=== PATIENT | female | born 1965 | race Caucasian/White ===

== ENCOUNTER 2025-09-21 15:24 | Emergency (ER) | payer BC, SELFPAY ==
[2025-09-21 15:26] VITALS: BP 126/72
[2025-09-21 15:46] LABS: Hematocrit 39.5 % (37.0-47.0); Hemoglobin 13.4 g/dL (12.0-16.0); Mean Corp Hgb Conc. 33.9 g/dL (33.0-37.0); Mean Corpuscular Volume 88.2 fL (81.0-99.0); Nucleated Red Blood Cells % 0 %; Platelet Count 273 10^3/uL (130-400); Red Cell Dist. Width 13.4 % (11.5-14.5)
[2025-09-21 15:56] LABS: ALT (SGPT) 33 U/L (0-35); AST (SGOT) 29 U/L (14-36); Albumin 4.1 g/dl (3.5-5.0); Alkaline Phosphatase 107 U/L (38-126); Blood Urea Nitrogen 23 mg/dl (7-17); Calcium 9.0 mg/dl (8.4-10.2); Carbon Dioxide 27 mmol/L (22-30); Chloride 104 mmol/L (98-107); Glucose 132 mg/dl (70-99); Potassium 3.9 mmol/L (3.5-5.1); Sodium 134 mmol/L (135-145); Total Protein 6.6 g/dl (6.3-8.2); eGFR > 60.00
[2025-09-21 17:27] VITALS: BP 115/69
[2025-09-21 17:29] VITALS: BMI 29.6
[2025-09-21 18:00] VITALS: BP 104/72
--- NOTE | 2025-09-21 18:53 | ED.CVA ---
History of Present Illness
General
Chief Complaint: CVA/TIA Symptoms
Time Seen by Provider: 09/21/25 17:18
Onset of Stroke Symptoms
Onset of symptoms known: Yes
Date of onset of symptoms: 09/21/25
Time of onset of symptoms: 09:00
History of Present Illness
History of Present Illness:
60-year-old female presenting to the emergency department for concern of strokelike symptoms. Patient reports at 9 AM she had an episode of dizziness and blurred vision. Reports recent complex history of possible TIA. Patient had been in [place]
visiting family when she had multiple episodes of right sided weakness. She notes extensive workup including CT and MRI which were all reportedly normal. She has since followed up with neurology at [facility], is scheduled for MRI and EEG in the
coming weeks. She had been on Plavix for about 3 weeks, since taken off. She is still taking aspirin. She notes that her symptoms today lasted about a minute. In discussion with neurology, she notes that migraines have been a discussion as
etiology of symptoms. Does report that she was having a headache after her symptoms today. Denies any present acute medical complaint such as weakness, numbness, chest pain, difficulty breathing.
Phy Exam
Physical Exam
Physical Exam:
General: Well-appearing, no clinical signs of dehydration, nontoxic and in no acute distress
HEENT: protecting airway, pupils equal and reactive
Neck: appears supple
CV: Normal heart rate, regular rhythm
Resp: No accessory muscle use, no increased work of breathing, lungs clear to auscultation bilaterally
Abd: No distention
Extremities: No deformities, no swelling
Neuro: alert, no focal neurologic deficit
: deferred
Rectal: deferred
Psych: Normal affect
Skin: Intact
Scores
NIH Stroke Score
Level of Consciousness: 0 - Alert
LOC Questions: 0-Answers both correctly
LOC Commands: 0-Performs both correctly
Best Horizontal Gaze: 0-Normal
Visual Puckett: 0=Normal, no visual loss
Facial Palsy: 0=Normal, symmetrical
Motor - Right Arm: 0=No drift 10 seconds
Motor - Left Arm: 0=No drift 10 seconds
Motor - Right Le-No drift 5 seconds
Motor - Left Le-No drift 5 seconds
Limb Ataxia: 0-Absent
Sensation: 0-Normal
Best Language: 0-No aphasia
Dysarthria: 0-Normal
Extinction and Inattention: 0-No abnormality
NIH Total Score:: 0
Course
Orders/Labs/Results
Orders:
Orders
09/21/25 15:33
Electrocardiogram (*1) Urgent
Reason for Study: Abdominal Pain
EKG- Treatment ONCE
09/21/25 15:36
Complete Blood Count/With Diff Urgent
Comprehensive Metabolic Panel Urgent
09/21/25 18:04
CT Head & Neck Angio W/wo IV Urgent
Comment:
Reason For Exam: blurred vision, dizziness
Abnormal Lab Results
09/21/25
15:36
Sodium 134 L mmol/L
(135-145)
BUN 23 H mg/dl
(7-17)
Glucose 132 H mg/dl
(70-99)
09/21/25 15:36
09/21/25 15:36
Vital Signs
Initial and Last Documented VS:
Initial Vital Signs
Temp Pulse Resp BP Pulse Ox
98.2 F 83 20 126/72 96
09/21/25 15:26 09/21/25 15:26 09/21/25 15:26 09/21/25 15:26 09/21/25 15:26
Last Documented Vital Signs
Temp Pulse Resp BP Pulse Ox
98.2 F 83 20 104/60 94
09/21/25 15:26 09/21/25 15:26 09/21/25 15:26 09/21/25 20:00 09/21/25 20:15
MDM/Problems Addressed
MDM/Problems Addressed:
60-year-old female presenting to the emergency department for episode of dizziness and blurred vision. Vital signs on arrival are normal
On exam patient is resting comfortably, no acute distress. Patient currently asymptomatic. Symptoms lasted for only about a minute. Symptoms could be consistent with TIA. Reassuring that symptoms have since resolved, and recent unremarkable
neurologic workup. Patient also has appropriate follow-up with neurology going forward. No present focal neurologic deficits. No indication for TNK. In the setting of stroke workup, will obtain CT and CT angio, as well as EKG and laboratory
analysis.
21:00-patient's labs are unremarkable. On reassessment, patient remains asymptomatic. At this time feel that she is stable for discharge, given that she has close interval follow-up with a neurologist for necessary testing. Return precautions
discussed and patient verbalized understanding
*Pulse Oximetry
SaO2: 99
Oxygen Mode of Delivery: Room air
Patient hypoxic: no
*Critical Care Note
Total Time (30-74mins, 75-104mins- exclusive of procedures): Not Applicable
ED Attending Note
-
Portions of this chart may have been created with voice recognition software.� Occasional wrong word or��sound alike� substitutions may have occurred due to the inherent limitations of voice recognition software.
Discharge Plan
Departure
Patient Disposition: Home (Routine Discharge)
Date of Disposition: 09/21/25
Time of Disposition: 20:59
Patient with high blood pressure during this ER visit?: No
Condition: Good
Discharge Problem:
Stroke-like symptoms
Instructions: Transient Ischemic Attack (DC)
Prescriptions:
New
atorvastatin [Lipitor] 80 mg tablet
80 mg PO DAILY Qty: 30 0RF
Referrals:
Timbo Rubio DO [Family Provider, Family Practice]
Activity Restrictions/Additional Instructions:
You were seen in the emergency department for dizziness and visual changes which have since resolved
You were found to have reassuring imaging of your brain. We however recommend continued follow-up with a neurologist for MRI and EEG as scheduled.
Please follow-up closely with your primary care physician.
Return to the emergency department for any worsening of your symptoms, or any development of chest pain, difficulty breathing, abdominal pain with persistent vomiting and inability to tolerate food or liquid by mouth (concern for dehydration),
weakness, headache or confusion, fever greater than 100.4, or any additional symptoms that are concerning to you.
Thank you for choosing [facility].
Interventions
Interventions:
*Risk Screen - Suicide Last Done: 09/21/25 15:26
*General Assessment Last Done: 09/21/25 15:26
*Neglect/Abuse Screening Last Done: 09/21/25 15:26
*ED- Fall Risk Assessment Last Done: 09/21/25 17:31
*ED COVID-19 Vaccine History Last Done: 09/21/25 17:31
*ED Influenza Vaccine History Last Done: 09/21/25 17:31
*Nursing Disposition Last Done: 09/21/25 21:11
ED- Pulmonary Assessment Last Done: 09/21/25 17:31
ED- Neurological Assessment Last Done: 09/21/25 17:31
ED- Cardiac Assessment Last Done: 09/21/25 17:31
ED Swallowing Screen Last Done: 09/21/25 17:31
Discharge Date and Time
Discharge Date/Time: 09/21/25 21:12
Print Language: ROMANSH
[2025-09-21 19:27] VITALS: BP 99/56
[2025-09-21 20:00] VITALS: BP 104/60
== END 2025-09-21 21:12 | disposition home or self-care (01) ==
LOC: EMR 15:24
PROVIDERS: Student in an Organized Health Care Education/Training Program; EMERGENCY PHYSICIAN Student in an Organized Health Care Education/Training Program; FAMILY PHYSICIAN Family Medicine
DX: R29.818 Other symptoms and signs involving the nervous system (principal); Z79.82 Long term (current) use of aspirin
CPT/HCPCS: 99284; 70496; 70498; 80053; 85025; 93005; Q9967